=== PATIENT | male | born 1990 | race Caucasian/White ===

== ENCOUNTER 2018-09-27 10:06 | Emergency (ER) | payer OTHER ==
[~2018-09-27] VITALS: Ht 177.8 cm; Wt 132.0 kg
--- NOTE | ~2018-09-27 | EMS ---
[facility] [address] [place] [address] EMS Patient Care Report Name: CLAIRE HYDE Room: [facility] SHELIA Yousif#: [id number] Admission: 09/27/18 Attend Phys: Discharge: 09/27/18 Date of : [birth year] Report #: [id number] THIS REPORT FOR: //name// Report Transmitted: 09/27/2018 14:04 EMS Care Summary [facility] Incident [id number] @ 09/27/2018 09:08 Incident Location [address] [address] Patient CLAIRE HYDE Male, 27 Years 1990 Patient Address [id number] [place] [address] Patient History Denies, Patient Allergies Denies, Patient Medications Denies, Chief Complaint CHEST PAIN Disposition Transported No Lights/[place] Reason Chest Pain Transported To [facility] Narrative HEMS Med 1 dispatched to the [facility] on chest pain. Emergent response. Chief Complaint: Upon arrival, patient was found sitting in a chair in the office. Patient is alert and oriented x4, p/w/diaphoretic. Patient c/o [facility] [address] [place] [address] EMS Patient Care Report Name: CLAIRE HYDE Room: [facility]#: [id number] Admission: 09/27/18 Attend Phys: Discharge: 09/27/18 Date of : [birth year] Report #: [id number] mid-sternal chest pain that he states is "sharp" and rates the pain 4-5/10. He states the pain is worse with palpation and that he feels dizzy when standing. Patient states he was feeling SOA prior to EMS arrival. History of Present Illness: Patient states he woke up around 0720 this morning and had chest pain at that time. He states he went to work and continued to have pain. Patient states that when he c/o feeling SOA, EMS was activated. Patient denies any pertinent medical history, however he states heart problems are prevalent in his family. Assessment: Initial Exam: Airway patent. Breathing spontaneous, non-labored; CEBBS. Circulation strong and regular. No obvious bleeding. Patient is alert and oriented x4, p/w/diaphoretic. Secondary Exam: See "Assessments" Page Reason for Transport by Ambulance: Patient required ALS care during transport, including cardiac monitoring and IV access. Treatment: Assessment provided. Vital signs obtained. threat monitoring analyst applied. 12 lead EKG performed; no STEMI. 324 mg ASA administered, PO. Patient ambulated to cot with assistance. Patient placed on cot and secured with seat belts. Patient taken to ambulance. Patient transported to ED and IV lock established en route. Patient reassessed; no changes. Report given to RN. Summary: No changes in patient condition during transport. Patient transported without incident and patient care transferred to RN upon arriving destination. Med 1 returned to service. Initial Vitals @09:30Glucose: 91, @09:47 @09:17 @09:18P: 90,SpO2: 100, @09:19P: 92, @09:48P: 78,Pain: 4/10,GCS: 15,SpO2: 100,3-Lead ECG: Sinus Rhythm @09:15P: 88,R: 20,BP: 150/90,Pain: 4/10,GCS: 15,SpO2: 100,Revised Trauma: 12,3-Lead ECG: Sinus Rhythm @09:38P: 81,R: 18,BP: 112/84,Pain: 4/10,GCS: 15,SpO2: 100,Revised Trauma: 12,3-Lead ECG: Sinus RhythmMI Suspected: false @09:53P: 80,R: 18,BP: 120/94,Pain: 4/10,GCS: 15,SpO2: 100,Revised Trauma: 12,3-Lead ECG: Sinus RhythmMI Suspected: false @09:25P: 87,R: 18,Pain: 4/10,GCS: 15,SpO2: 100,3-Lead ECG: Sinus RhythmMI Suspected: [place] [address] EMS Patient Care Report Name: CLAIRE HYDE Room: [facility] Benja#: [id number] Admission: 09/27/18 Attend Phys: Discharge: 09/27/18 Date of : [birth year] Report #: [id number] @09:31P: 77,R: 18,BP: 117/89,Pain: 4/10,GCS: 15,SpO2: 96,Revised Trauma: 12,3-Lead ECG: Sinus RhythmMI Suspected: false Assessments @09:14MENTAL:Person Oriented,Time Oriented,Event Oriented,Place Oriented,SKIN:Diaphoresis,HEENT:LUNG SOUNDS:ABDOMEN:PELVIS//GI:EXTREMITIES:PULSE:NEURO:@09:45MENTAL:Place Oriented,Person Oriented,Time Oriented,Event Oriented,SKIN:HEENT:LUNG SOUNDS:ABDOMEN:PELVIS//GI:EXTREMITIES:PULSE:NEURO: Impression Chest Pain / Discomfort Procedures @09:18Aspirin - 324 mg - OralResponse: Unchanged@09:14ALS AssessmentResponse: UnchangedSucceeded@09:25Saline Lock 10cc (18 ga) Site: Antecubital-LeftResponse: UnchangedSucceeded@09:1912-Lead ECGResponse: UnchangedSucceeded@09:1812-Lead ECGResponse: UnchangedSucceeded@09:1712-Lead ECGResponse: UnchangedSucceeded@09:4812-Lead ECGResponse: UnchangedSucceeded@09:3112-Lead ECGResponse: UnchangedSucceeded@09:4712-Lead ECGResponse: UnchangedSucceeded Timeline 09:06,Call Received 09:06,Psap Call 09:08,Dispatched 09:08,En Route 09:10,On Scene 09:14,At Patient 09:14,ALS Assessment,Response: UnchangedSucceeded, 09:15,BP: 150/90 M,PULSE: 88,RR: 20 R,SPO2: 100 Ox,ETCO2: ,BG: ,PAIN: 4,GCS: 15, 09:17,12-Lead ECG,Response: UnchangedSucceeded, 09:17,BP: / M,PULSE: ,RR: R,SPO2: Ox,ETCO2: ,BG: ,PAIN: ,GCS: , 09:18,Aspirin - 324 mg - Oral,Response: Unchanged 09:18,12-Lead ECG,Response: UnchangedSucceeded, 09:18,BP: / M,PULSE: 90,RR: R,SPO2: 100 Ox,ETCO2: ,BG: ,PAIN: ,GCS: , 09:19,12-Lead ECG,Response: UnchangedSucceeded, 09:19,BP: / M,PULSE: 92,RR: R,SPO2: Ox,ETCO2: ,BG: ,PAIN: ,GCS: , 09:24,Depart Scene 09:25,Saline Lock 10cc 18 ga Site: Antecubital-Left,Response: UnchangedSucceeded, 09:25,BP: / M,PULSE: 87,RR: 18 R,SPO2: 100 Ox,ETCO2: ,BG: ,PAIN: 4,GCS: 15, 09:30,BP: / M,PULSE: ,RR: R,SPO2: Ox,ETCO2: ,B,PAIN: ,GCS: , 09:31,12-Lead ECG,Response: UnchangedSucceeded, 09:31,BP: 117/89 M,PULSE: 77,RR: 18 R,SPO2: 96 Ox,ETCO2: ,BG: ,PAIN: 4,GCS: 15, [place] [address] EMS Patient Care Report Name: CLAIRE HYDE Leanna Room: [facility]#: [id number] Admission: 09/27/18 Attend Phys: Discharge: 09/27/18 Date of : [birth year] Report #: [id number] 09:38,BP: 112/84 M,PULSE: 81,RR: 18 R,SPO2: 100 Ox,ETCO2: ,BG: ,PAIN: 4,GCS: 15, 09:47,12-Lead ECG,Response: UnchangedSucceeded, 09:47,BP: / M,PULSE: ,RR: R,SPO2: Ox,ETCO2: ,BG: ,PAIN: ,GCS: , 09:48,12-Lead ECG,Response: UnchangedSucceeded, 09:48,BP: / M,PULSE: 78,RR: R,SPO2: 100 Ox,ETCO2: ,BG: ,PAIN: 4,GCS: 15, 09:53,BP: 120/94 M,PULSE: 80,RR: 18 R,SPO2: 100 Ox,ETCO2: ,BG: ,PAIN: 4,GCS: 15, 10:03,At Destination 10:41,Call Closed Disclaimer v1.1 Copyright 2019 [employer] This EMS Care Summary contains data elements from the applicable legal record (which may be displayed differently). It is designed to provide pertinent information for the following purposes: continuity of care, clinical quality, and state data reporting. The complete legal record is available to ED staff and administrators of the receiving hospital in [employer] Patient Tracker. All data is provided "as is."
[~2018-09-27 10:06] MED LIST: ANUSOL-HC21 GM RC; NOHOMEMEDICATIONS
[2018-09-27 10:15] LABS: ABSOLUTE BASOPHILS 0.1 thou/uL (0.0-0.2); ABSOLUTE EOSINOPHILS 0.2 thou/uL (0.0-0.7); ABSOLUTE LYMPHOCYTES 2.5 thou/uL (0.8-5.3); ABSOLUTE MONOCYTES 0.7 thou/uL (0.0-1.2); ABSOLUTE NEUTROPHILS 5.3 thou/uL (1.6-8.1); BASOPHILS 0.8 %; EOSINOPHILS 1.8 %; HEMATOCRIT 41.9 % (42.0-52.0); LYMPHOCYTES 28.8 %; MCH 28.2 pg (26.0-34.0); MCHC 33.4 g/dL (28.0-37.0); MCV 84.5 fL (80.0-100.0); MONOCYTES 7.8 %; MPV 9.2 fl. (7.2-11.1); NUCLEATED RBCS 0 /100WBC; PLATELET COUNT* 274 thou/uL (150-400); POLYS 60.8 %; RBC 4.97 mil/uL (4.50-6.00); RDW-CV 14.8 % (10.5-14.5); WBC 8.8 thou/uL (4.0-11.0)
[2018-09-27 10:28] LABS: ANION GAP 7 mmol/L (7-16); BUN 16 mg/dL (7-18); CHLORIDE 104 mmol/L (98-107); CO2 27 mmol/L (21-32); GLUCOSE 97 mg/dL (70-99); SODIUM 138 mmol/L (136-145)
[2018-09-27 10:31] LABS: APTT 29.6 Seconds (25.0-31.3); PROTIME 10.1 Seconds (9.20-11.50)
[2018-09-27 10:45] LABS: ALBUMIN 3.5 g/dL (3.4-5.0); ALKALINE PHOSPHATASE 77 U/L (46-116); CK-MB MASS 1.2 ng/mL (<0.5-3.6); LIPASE 97 U/L (73-393); MAGNESIUM 1.8 mg/dL (1.8-2.4); NT-PRO BRAIN NAT PEPTIDE 75 pg/mL (<300); SGOT 17 U/L (15-37); SGPT 38 U/L (30-65); TOTAL BILIRUBIN 0.4 mg/dL (<0.1-1.0); TOTAL PROTEIN 7.5 g/dL (6.4-8.2); TROPONIN-I LEVEL <0.06 ng/mL (<0.06)
[2018-09-27 11:24] VITALS: BP 137/87
--- NOTE | 2018-09-27 15:25 | EKG ---
[place] [address] ELECTROCARDIOGRAM REPORT Name: CLARIE HYDE Room: [facility] Benja#: [id number] Admission: 09/27/18 Attend Phys: Discharge: 09/27/18 Date of : [birth year] Report #: [id number] THIS REPORT FOR: //name// [facility] ED Test Date: 2018-09-27 Test Time: 10:09:53 Pat Name: CLAIRE HYDE Department: Room: Gender: M [employer]: SERA : 1990 Requested By: Guillermo Payne Order Number: [id number] MD: Santy Finley Measurements Intervals [employer] Rate: 72 P: 37 CA: 149 QRS: 60 QRSD: 104 T: 33 QT: 359 QTc: 393 Interpretive Statements Sinus rhythm No previous ECG available for comparison Electronically Signed On 09-27-2018 15:25:30 CDT by Santy Finley [email or web address] <ELECTRONICALLY SIGNED> By: Santy Finley MD, [facility] 09/27/18 1525 [id number] [id number] Santy Finley MD, FACC /EPI
== END 2018-09-27 11:26 | disposition home or self-care (01) ==
LOC: M.ERS 10:06
PROVIDERS: Family Medicine
DX: R07.2 Precordial pain (principal); R42 Dizziness and giddiness